=== PATIENT | male | born 1955 | race Two or more races ===

== ENCOUNTER 2024-03-06 14:50 | Emergency (ER) | payer OTHER ==
[~2024-03-06] VITALS: Ht 182.9 cm; Wt 77.1 kg
[2024-03-06] MEDS ORDERED: LOSARTAN-HCTZ1 EACH PO (15:09)
[2024-03-06] MEDS ORDERED: METOPROLOL SUC100 MG PO (15:09)
[2024-03-06] MEDS ORDERED: WARFARIN SODIUM1 MG PO (15:09)
[2024-03-06] MEDS ORDERED: PANTOPRAZOLE SODIUM 40 MG/VIAL VIAL IV ONE (15:30)
[2024-03-06] MEDS ORDERED: 0.9 % SODIUM CHLORIDE 1,000 ML IV ONE (15:45)
[2024-03-06] MEDS ORDERED: CEFTRIAXONE SODIUM 1,000 MG VIAL IV ONE (16:15)
[2024-03-06 16:28] LABS: URINE APPEARANCE Clear; URINE BILIRRUBIN Negative (NEGATIVE); URINE BLOOD Negative; URINE COLOR Yellow; URINE GLUCOSE Negative (NEGATIVE); URINE KETONE Negative (NEGATIVE); URINE LEUKOCYTE Negative; URINE NITRATE Negative; URINE PROTEIN Negative (NEGATIVE); URINE UROBILINOGEN 0.2 E.U./dl
[2024-03-06] MEDS ORDERED: CEFTRIAXONE SODIUM 1,000 MG VIAL ONE (16:31)
[2024-03-06 16:32] LABS: URINE BACTERIA 8.8 uL (0.0-1933); URINE EPITHELIAL CELLS 2.3 uL (0.0-38.8)
[2024-03-06 16:42] LABS: HEMATOCRIT 25.5 % (39.0-48.0); MEAN CELL VOLUME 82.8 fL (80.0-100.00); MEAN CORPUSCULAR HGB CONC 33.5 g/dl (32.0-36.0); PLATELET COUNT 222 K/uL (150-450); RED BLOOD COUNT 3.08 M/uL (4.00-6.00)
[2024-03-06 16:43] LABS: URINE WBC 1.2 uL (0.0-23.2)
[2024-03-06 16:45] LABS: ob POSITIVE (NEGATIVE)
[2024-03-06 16:46] LABS: HEMOGLOBIN 8.6 g/dL (13-16.00); MEAN CORPUSCULAR HEMOGLOBIN 27.9 pg (27.00-32.0)
[2024-03-06 17:05] LABS: ALBUMIN 3.2 gm/dL (3.4-5.0); BILIRUBIN TOTAL 0.74 mg/dL (0.3-1.2); CALCIUM 8.8 mg/dL (8.5-10.1); CREATININE SERUM 1.1 mg/dL (0.70-1.30); GFR 66.77; GLOBULINA 3.7 G/DL (2.4-3.5); POTASSIUM 3.92 mEq/L (3.5-5.1); TOTAL PROTEIN 6.9 gm/dL (6.4-8.2)
[2024-03-06 17:09] LABS: INR 2.05; PARTIAL THROMBOPLASTIN TIME 30.8 SECONDS (22.0-34.0); PROTHROMBIN TIME 20.4 SECONDS (9.0-11.5)
[2024-03-06 17:38] LABS: ABG PH 7.411 (7.35-7.45); ABG PO2 99.9 mmHg (80-100); ABG pCO2 34.9 mmHg (35-45); BASE EXCESS -2.2 mmol/l; BICARBONATE 21.7 mmol/l (23-25); SaO2 97.7 %; Tco2 22.7 mmol/l; o2 21 %
[2024-03-06 17:39] LABS: allen test SATISFACTORY; puncture site RADIAL RIGHT
[2024-03-06] MEDS ORDERED: PIPERACILLIN/TAZOBACTAM SODIUM 3.375 GM VIAL IV ONE ×2 (19:30→19:32)
[2024-03-06 23:43] LABS: MEAN CELL VOLUME 82.9 fL (80.0-100.00); MEAN CORPUSCULAR HGB CONC 33.7 g/dl (32.0-36.0); PLATELET COUNT 181 K/uL (150-450); RED BLOOD COUNT 2.65 M/uL (4.00-6.00)
[2024-03-06 23:50] LABS: HEMOGLOBIN 7.4 g/dL (13-16.00); MEAN CORPUSCULAR HEMOGLOBIN 27.9 pg (27.00-32.0)
== END 2024-03-07 03:04 | disposition designated cancer center or children's hospital (05) ==
LOC: ER 14:50
PROVIDERS: General Practice
DX: K62.5 Hemorrhage of anus and rectum (principal); Z95.5 Presence of coronary angioplasty implant and graft; I10 Essential (primary) hypertension
CPT/HCPCS: 36415; 71046; 74177; 82803; 93005; 96365; 99284; J0696; J2543; J7030; Q9965